=== PATIENT | female | born 1960 | race Caucasian/White ===

== ENCOUNTER → 2016-09-02 | Outpatient (CLI) | payer OTHER ==
--- NOTE | 2016-09-02 15:45 | US ---
Complete abdominal sonography Conical history: 55-year-old female with right upper quadrant pain, frequency of micturition, and gas eous abdominal distention. Evaluate the gallbladder. ICD 10 Diagnostic Codes: R10.11, R14.0, and R35.0. Technique: A curvilinear 5 MHz transducer was used to sonographically evaluate the upper abdomen. Col or Doppler was also used. Comparison Studies: Sonography and CT imaging of the abdomen, dated June 11, 2012. Findings: The pancreatic contour is normal. The abdominal aorta is normal in size, and tapers normall y. The visualized IVC is normal in caliber. The main portal vein is patent, and the hepatic vein trif urcation is normal. There is no ascites or pleural effusion. The liver is normal in size, measuring 1 3.4 cm along the right midaxillary line. There is no focal hepatic mass identified. There is no intra or extra hepatic bile duct dilatation. The common bile duct measures 2.4 mm. The gallbladder is mode rately distended, with no stones, sludge, wall thickening, pericholecystic fluid, or sonographic Murp hy sign. The wall thickness is 2.2 mm. The right kidney is slightly malrotated, and measures 11.6 x 4 .4 x 3.5 cm with a small extrarenal pelvis. The left kidney is normal in size, shape, and position, m easuring 10.9 x 4.7 x 3.9 cm. There is no hydronephrosis or perinephric fluid. The spleen is normal, measuring 10.1 x 9.2 x 3.9 cm. Impression: Findings are within normal limits. As requested, results were conveyed to Vania, the medical assistant dermatology for Dr. Dayna Betancourt. A test result has been communicated to a licensed care provider and documented in [facility], 3:39:41 PM , 09/02/2016, [facility] Message ID [id number].
== END ==
LOC: FIMAGING 12:08
PROVIDERS: ATTEND Internal Medicine
DX: R10.11 Right upper quadrant pain (principal); R14.0 Abdominal distension (gaseous)

== ENCOUNTER → 2016-09-14 | Outpatient (CLI) | payer OTHER ==
--- NOTE | 2016-09-14 10:21 | MR ---
Unenhanced MRI of the Thoracic Spine Clinical History: 55-year-old female with epigastric pain; rule out neurologic pathology as abdominal sonography was negative. ICD 10 Diagnostic Code: R10.13. Technique: Sagittal T1 localizers were obtained of the cervical, thoracic, and lumbar spine for the p urpose of counting vertebral bodies. Subsequently, FSE coronal and sagittal T2-weighted sequences, sa gittal T1 FLAIR, and T2 STIR sequences of the thoracic spine were obtained and supplemented by axial T1 and FSE T2-weighted sequences Comparison Study: MR imaging of the thoracic spine, dated April 27, 2012. Findings: The thoracic vertebral body heights, posterior alignments, and bone marrow signal are withi n normal limits. The disk spaces are maintained. The spinal cord caliber and signal are normal with n o cord edema, myelomalacia, or syrinx. There is no focal disk herniation, canal stenosis, or neural f oraminal impingement. There is no prevertebral or epidural hematoma. The conus medullaris has a alice l morphology, terminating at the caudal aspect of L1. The visualized prevertebral soft tissues are wi thin normal limits. The dorsal interspinous distances are appropriate, and there is no abnormality wi th respect to the interspinous ligament or the anterior and posterior longitudinal ligaments. There i s a 3.7 mm cyst in the posteromedial right hepatic lobe, and there is a left extrarenal pelvis incide ntally observed. Impression: Findings are within normal limits, and relatively unchanged from April 27, 2012.
== END ==
LOC: FIMAGING 08:01
PROVIDERS: ATTEND Family Medicine
DX: R10.13 Epigastric pain (principal)

== ENCOUNTER 2016-09-15 19:23 | Emergency (ER) | payer BC, OTHER ==
[2016-09-15 19:42] VITALS: BP 108/56; PULSE 78; RESP 20; TEMP 97.3; O2SAT 98
--- NOTE | 2016-09-15 19:47 | EDPHY ---
[id number] 4d CHIEF COMPLAINT: Abdominal pain HISTORY OF PRESENT ILLNESS: This patient is a 55 year old female who presents to the Emergency Department complaining of intermittent abdominal pain beginning on August 11 and increasing in frequency over time. Her pain is exacerbated when she attempts to eat so she reports associated weight loss over this time. Today, her pain presented spontaneously at 1600; her last meal was at breakfast. She describes her pain as stabbing and burning and localized to her upper abdomen with radiation to her back and upper left shoulder. Her pain radiated up to her head and down both arms with paresthesias. The back, shoulder , and arm discomfort was short-lived and has resolved. She denies fever, urinary complaints, diarrhea, or vomiting. She does tell me that she experienced similar episodes of abdominal pain over the past five years that resolved on their own. She had an abdominal ultrasound done recently which showed an enlarged gall bladder but no cholelithiasis. She had a thoracic MRI done yesterday to rule out neurological etiology for her symptoms and is scheduled to have an abdominal CT with oral contrast tomorrow. Medical history includes Lyme disease with a pericardial effusion that is followed by US (last ultrasound almost a year ago). Family history includes pancreatic cancer in uncle and mother. REVIEW OF SYSTEMS: A ten point review of systems was performed and is negative with the exception of the items mentioned in the HPI. Source: Patient - Personal History Current Tetanus Diphtheria and Acellular Pertussis (TDAP): Yes Tetanus Vaccine Date: 1 year ago - Medical/Surgical History Hx Asthma: No Hx Chronic Respiratory Disease: No Hx Diabetes: No Hx Cardiac Disease: Yes Hx Renal Disease: No Hx Cirrhosis: No Hx Alcoholism: No Hx HIV/AIDS: No Hx Splenectomy or Spleen Trauma: No Other PMH: hypothyroid. Lyme disease. pericardial effusion - Social History Smoking Status: Never smoked Additional Social History: She is . Occasional alcohol use. She works in [employer]. - Physical Exam Exam: General Appearance: Alert. Vital signs reviewed. Eyes: Pupils equal and round, no conjunctival injection, no discharge. Anicteric. ENT, Mouth: Mucous membranes are moist, no oropharyngeal erythema or edema. Neck: No lymphadenopathy, supple. Respiratory: Lungs are clear to auscultation; no wheezes, rales, or rhonchi. Cardiovascular: Regular rate and rhythm; no murmur, rub, or gallop. Gastrointestinal: Abdomen is soft and mildly tender in midepigastrium, no masses or organomegaly, bowel sounds normal. No guarding. Skin: Warm and dry, no rashes on exposed skin, normal color. Specifically, no vesicular lesions. Back: Nontender to palpation over the thoracolumbar spine. No CVAT. Extremities: No lower extremity edema, no calf tenderness or swelling. Neurological: Alert and oriented. Moving all four extremities easily and equally. Psychiatric: Normal affect. Constitutional: Initial Vital Signs Temperature (C) 36.3 C 09/15/16 19:38 Heart Rate 78 09/15/16 19:38 Respiratory Rate 20 09/15/16 19:38 Blood Pressure 108/56 L 09/15/16 19:38 O2 Sat (%) 98 09/15/16 19:38 O2 Delivery Mode Room Air Allergies/Adverse Reactions: shellfish derived Allergy (Verified 09/15/16 19:38) SCOPOLOMINE Allergy (Uncoded 09/15/16 19:37) Home Medications: Medication Instructions Recorded Levothyroxine [Synthroid 75 mcg 75 mcg PO DAILY06 04/21/12 (*)] Calcium Carbonate [Oyster Shell 500 mg PO DAILY 06/11/12 Calcium 500 mg (*)] Cholecalciferol Vit D3 [Vitamin D3 1,000 units PO DAILY 06/11/12 (*)] Herbals/Supplements -Info Only 1 each PO DAILY 06/11/12 Multivitamins [Multivitamin (*)] 1 each PO DAILY 06/11/12 Planner/Scheduler Completed 06/11/12 06/11/12 Reconciled 06/11/12 06/11/12 Acetaminophen [Tylenol 325mg (*)] 650 mg PO Q4 PRN #0 tab 06/12/12 Hydrocodone/APAP 5/325 [[place] 1 tab PO Q4 PRN #30 tab 06/12/12 5/325 (*)] Loperamide HCl [Imodium 2 mg (*)] 2 mg PO Q2 PRN #30 cap 06/12/12 Cefdinir 07/24/16 Medical Decision Making ED Course/Re-evaluation: I reviewed the patient's prior medical records including recent MRI and labs.We discussed proceeding with abdominal CT she had planned for tomorrow; however, the study is ordered with PO and IV contrast. I spoke with the radiologist who recommends PO contrast tonight and again tomorrow before the CT (this is how she has been instructed to take the contrast). Zonia does not have a surgical abdomen tonight and I do not suspect an acute change that would require intervention. Therefore I recommend proceeding with the OP CT as planned. I feel that the best results and the best hope for diagnosis will be obtained that way. I discussed with her return to the ED precautions which she understands. Her acute symptoms have resolved. Her exam is not worrisome. VS WNL. She will be discharged home in good condition. I do not suspect aortic dissection, ureterolithiasis, ascending cholangitis, bowel obstruction or perforation, intra-abdominal infection such as appendicitis. Departure - Departure Disposition: Home, Routine, Self-Care Clinical Impression: Abdominal pain Condition: Good Instructions: Abdominal Pain (ED) Additional Instructions: 1. Proceed with your CT prep as planned. 2. Return to the Emergency Department with fever, worsening pain, or other serious concerns. Referrals: Lei Navas MD [Primary Care Provider] - As per Instructions Report Scribed for: Cami Brannon Report Scribed by: Virginia Palacio Date of Report: 09/15/16 Time of Report: 19:50 Physician Review and Approval Statement: 09/15/16 19:46 Portions of this note were transcribed by the medical concierge. I, Dr. Cami Brannon, personally performed the history, physical exam, and medical decision- making; and confirmed the accuracy of the information in the transcribed note.
== END 2016-09-15 21:00 | disposition home or self-care (01) ==
DX: R10.13 Epigastric pain (principal)

== ENCOUNTER → 2016-09-16 | Outpatient (CLI) | payer BC, OTHER ==
[~2016-09-16] MED LIST: IOPAMIDOL (ISOVUE-300) 50 ML VIAL IV ONE
--- NOTE | 2016-09-16 18:18 | CT ---
CT Scan of the Abdomen and Pelvis (With Contrast) Clinical Indications: 55-year-old female with postprandial epigastric pain with solids for one month. There is a family history of pancreatic masses. There is no personal prior abdominal surgical histor y. ICD-10 DIAGNOSTIC CODE: R10.13. Technique: Dilute contrast was given orally prior to scanning. 85 mL ofIsovue-300 were given intrave nously by machine power injection. A multidetector helical CT imaging was performed from the diaphra gm to the symphysis pubis. Dose reduction techniques were utilized. Images are reformatted at 5.00 an d 1.25 mm increments, and are reviewed at a variety window and level settings. Parasagittal and parac oronal reconstructed images are reviewed on the workstation. The DFOV is 36 cm. COMPARISON STUDY: Contrast-enhanced CT scan of the abdomen, dated 06/11/2012. Findings: Contrast-Enhanced CT Scan of the Abdomen: There is a persistent inferior pericardial recess effusion with a Hounsfield unit measurement of 23. The lung bases are clear, and there is no significant pleu ral fluid. The liver is normal in size and attenuation with a tiny cyst once again seen in the media l right hepatic lobe on series 3, images 68-72. The biliary ducts and gallbladder are unremarkable. The stomach and the first, second, and proximal third portions of the duodenum are fluid-distended, a nd there appears to be some narrowing of the aortomesenteric distance to 5 mm (normal should be at le ast 10 mm), and the aortomesenteric angle has also narrowed to 19 degrees (normally this should be gr eater than or equal to 25 degrees). This raises the possibility of a superior mesenteric artery syndr ome. Upper GI fluoroscopy may be of benefit in further evaluating the persistence of extrinsic compre ssion on the third portion of the duodenum. The pancreas and spleen are normal. The adrenal glands a nd kidneys are normal in size. 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 There is no calyceal dilat ation or perinephric inflammation. There is no retroperitoneal or mesenteric adenopathy. There is no ascites. The abdominal aorta is normal in size with some mild atherosclerotic calcification. The IVC is normal in caliber. The osseous structures are age-appropriate. Moderate constipation is seen. Contrast-Enhanced CT Scan of the Pelvis: The urinary bladder is moderately distended. The uterus is m idline. There is no adnexal mass, or free fluid or adenopathy. The osseous structures are age-appropr iate. Bowel loops are normal. Impression: 1. There is a small inferior pericardial recess effusion, similar to 2012. This is incompletely image d, and if there is further clinical concern echocardiography, may be of benefit. 2. Gastric and duodenal distention with a potential "superior mesenteric artery compression disorder. " Consider upper GI fluoroscopy to further evaluate for persistent extrinsic compression on the third portion of the duodenum (given the patient's postprandial symptoms). A nuclear medicine gastric empt valery study may also be of benefit, as clinically directed.
== END ==
LOC: FIMAGING 15:00
PROVIDERS: ATTEND Family Medicine
DX: N32.89 Other specified disorders of bladder (principal); I31.3 Pericardial effusion (noninflammatory)
CPT/HCPCS: Q9967

== ENCOUNTER 2016-09-18 04:02 | Observation (INO) | payer BC ==
--- NOTE | 2016-09-18 04:26 | EDPHY ---
H & P Stated Complaint: pt says she's had mid abd burning and overnight began feeling sob HPI/ROS: HPI CHIEF COMPLAINT: Abdominal pain, nausea, vomiting, weight loss HISTORY OF PRESENT ILLNESS: This patient is a very pleasant 55-year-old female she has significant past medical history for Lyme disease, hypothyroidism, presents emergency room with a 10 lb weight loss over the past month. She tells me that she has been having epigastric abdominal pain with nausea and has not been able to tolerate whole food in the past month. She has had no evaluation with an ultrasound that showed a normal gallbladder she seen her primary care doctor she was referred for CT scan that she had 2 days ago for ongoing epigastric abdominal pain she describes severe pain burning in nature worse after she eats food. She has been puree in her food with now at 10 pain weight loss. Of note I did review her CT scan she had 2 days ago that shows gastric outlet obstruction with extrinsic compression of the SMA causing duodenal compression. This most likely cause of her pain. Past Medical History: Lyme disease, thyroid disease Past Surgical History: No significant surgical history Social History: Denies drug use, alcohol, tobacco products Family History: Noncontributory ROS REVIEW OF SYSTEMS: A comprehensive 10 point review of systems is otherwise negative aside from elements mentioned in the history of present illness. Exam Constitutional triage nursing summary reviewed, vital signs reviewed, awake/ alert. Eyes normal conjunctivae and sclera, EOMI, PERRLA. HENT normal inspection, atraumatic, moist mucus membranes, no epistaxis, neck supple/ no meningismus, no raccoon eyes. Respiratory clear to auscultation bilaterally, normal breath sounds, no respiratory distress, no wheezing. Cardiovascular rate normal, regular rhythm, no murmur, no edema, distal pulses normal. Gastrointestinal soft, mild tenderness in the epigastric region , no rebound, no guarding, normal bowel sounds, no distension, no pulsatile mass. Genitourinary no CVA tenderness. Musculoskeletal no midline vertebral tenderness, full range of motion, no calf swelling, no tenderness of extremities, no meningismus, good pulses, neurovascularly intact. Skin pink, warm, & dry, no rash, skin atraumatic. Neurologic awake, alert and oriented x 3, AAOx3, moves all 4 extremities equally, motor intact, sensory intact, CN II-XII intact, normal cerebellar, normal vision, normal speech. Psychiatric normal mood/affect. Heme/Lymph/Immune no lymphadenopathy. Differential diagnosis includes but is not limited to and in no particular order : Bowel obstruction, appendicitis, gallbladder disease, diverticulitis, colitis , enteritis, perforated viscus, gastritis, GERD, esophagitis, urinary tract infection, pyelonephritis, kidney stones Medical Decision Making: plan is for IV establishment IV fluids nausea medicine pain medicine will obtain abdominal blood work I did review her CT scan results with her. I did recommend admission to the patient due to 10-15 lb weight loss ongoing epigastric abdominal pain and the results of her CT scan she would benefit from EGD and GI to see. She is agreeable with this plan. Re-evaluation: EKG interpretation by me on record in [facility] system. Impression time of EKG is 4:32 a.m., this is sinus rhythm rate of 80, no acute ischemic changes specifically no ST elevation, ST depression T-wave abnormality. 0610: re-evaluation patient is resting comfortably here in the emergency room acute distress. I did review her CT scan with her. blood work is reassuring, negative troponin, nonischemic EKG. Patient be admitted to the hospitalist service I spoke with Dr. Rosa for admission for Gastric Outlet Obstruction. Recommend GI sees this patient most likely do an EGD. Or emptying study. 0621: Spoke with Dr. Rosa agrees to admit this patient. 0633; re-evaluation patient agrees for admission. She is resting comfortably this time no acute distress. ED x-ray chest one view: upright: Negative for acute cardiopulmonary disease. Image interpreted by myself. No free air underneath the diaphragms. Source: Patient - Personal History Tetanus Vaccine Date: 1 year ago - Medical/Surgical History Hx Asthma: No Hx Chronic Respiratory Disease: No Hx Diabetes: No Hx Cardiac Disease: Yes Hx Renal Disease: No Hx Cirrhosis: No Hx Alcoholism: No Hx HIV/AIDS: No Hx Splenectomy or Spleen Trauma: No Other PMH: hypothyroid. Lyme disease. pericardial effusion - Social History Smoking Status: Never smoked Constitutional: Initial Vital Signs Temperature (C) 36.3 C 09/18/16 04:06 Heart Rate 87 09/18/16 04:06 Respiratory Rate 18 09/18/16 04:06 Blood Pressure 124/85 H 09/18/16 04:06 O2 Sat (%) 99 09/18/16 04:06 O2 Delivery Mode Room Air Allergies/Adverse Reactions: shellfish derived Allergy (Verified 09/18/16 04:09) SCOPOLOMINE Allergy (Uncoded 09/15/16 19:37) Home Medications: Medication Instructions Recorded Herbals/Supplements -Info Only 1 each PO DAILY 06/11/12 Compounded Sl Testosterone 1 each PO MOTUWETHFRSA 09/18/16 Levothyroxine [Synthroid 75 mcg 75 mcg PO DAILY06 #30 tab 09/19/16 (*)] Sucralfate [Carafate Oral Liquid] 10 ml PO ACHS #500 ml 09/19/16 Medical Decision Making - Data Points Laboratory Results: Laboratory Results 09/18/16 04:25 09/18/16 04:25 Medications Given: Discontinued Medications Acetaminophen (Tylenol) 650 mg PO Q4HRS PRN PRN Reason: Pain, Mild/Fever, Can Take PO Stop: 03/17/17 07:14 Last Admin: 09/18/16 20:48 Dose: 650 mg Famotidine (Pepcid) 20 mg PO BID ON LICENSE OF [facility] Stop: 03/18/17 11:59 Last Admin: 09/19/16 12:29 Dose: Not Given Sodium Chloride (Ns) 1,000 mls @ 0 mls/hr IV ONCE ONE PRN Reason: Wide Open Stop: 09/18/16 04:30 Last Admin: 09/18/16 04:38 Dose: 1,000 mls Sodium Chloride (Ns) 1,000 mls @ 100 mls/hr IV CONT JUMA Stop: 03/17/17 07:14 Last Admin: 09/19/16 04:10 Dose: 1,000 mls Morphine Sulfate (Morphine) 6 mg IVP EDNOW ONE Stop: 09/18/16 04:30 Last Admin: 09/18/16 08:36 Dose: Not Given Ondansetron HCl (Zofran) 4 mg IVP EDNOW ONE Stop: 09/18/16 04:30 Last Admin: 09/18/16 08:31 Dose: 2 mg Sucralfate (Carafate Suspension) 1 gm PO ACHS ON LICENSE OF [facility] Stop: 03/18/17 12:29 Last Admin: 09/19/16 12:20 Dose: 1 gm Departure - Departure Disposition: [facility] Acute Clinical Impression: Abdominal pain Qualifiers: Abdominal location: epigastric Qualifier Code: (R10.13) Epigastric pain Condition: Good
[2016-09-18] MEDS ORDERED: ONDANSETRON 4 MG/2 ML VIAL IVP ONE (04:29)
[2016-09-18] MEDS ORDERED: NS 1,000 ML IV ONE (04:29)
[2016-09-18 04:34] LABS: % IMMATURE GRANULYOCYTES 0.2 % (0.0-1.1); ABSOLUTE IMMATURE GRANULOCYTES 0.01 10^3/uL (0.00-0.10); ADD DIFF? NO; ADD MORPH? NO; ADD SCAN? NO; ATYPICAL LYMPHOCYTE FLAG 10 (0-99); FRAGMENT RBC FLAG 0 (0-99); HEMATOCRIT 41.7 % (38.0-47.0); HEMOGLOBIN 14.6 g/dL (12.6-16.3); LEFT SHIFT FLG 10 (0-99); LIPEMIA HEMOLYSIS FLAG 90 (0-99); MEAN CELL HEMOGLOBIN 29.3 pg (27.9-34.1); MEAN CELL VOLUME 83.7 fL (81.5-99.8); MEAN PLATELET VOLUME 12.5 fL (8.7-11.7); PLATELET CLUMPS FLAG 0 (0-99); PLATELET COUNT 153 10^3/uL (150-400); RED BLOOD CELL COUNT 4.98 10^6/uL (4.18-5.33); RED CELL DISTRIBUTION WIDTH 12.2 % (11.5-15.2)
[2016-09-18 04:43] LABS: APTT 29.2 SEC (23.0-38.0); INR 1.12 (0.83-1.16); PROTIME(PATIENT) 14.3 SEC (12.0-15.0)
--- NOTE | 2016-09-18 04:47 | CPEKG ---
Heart Rate: 80 RR Interval: 750 P-R Interval: 176 QRSD Interval: 76 QT Interval: 372 QTC Interval: 430 P [place]: 64 QRS [place]: 81 T Wave [place]: 67 EKG Severity - BORDERLINE ECG - EKG Impression: SINUS RHYTHM EKG Impression: LOW VOLTAGE WITH RIGHT AXIS DEVIATION Electronically Signed By: Rick Leung 18-Sep-2016 06:53:10
[2016-09-18 04:48] LABS: ALANINE AMINOTRANSFERASE 45 IU/L (9-52); ALBUMIN 4.3 g/dL (3.5-5.0); ALKALINE PHOSPHATASE 95 IU/L (38-126); ANION GAP 11 mEq/L (8-16); ASPARTATE AMINOTRANSFERASE 32 IU/L (14-46); BILIRUBIN,TOTAL 0.8 mg/dL (0.1-1.4); BILIRUBIN-CONJUGATED 0.1 mg/dL (0.0-0.5); BILIRUBIN-UNCONJUGATED 0.7 mg/dL (0.0-1.1); CALCIUM 9.8 mg/dL (8.5-10.4); CARBON DIOXIDE 25 mEq/l (22-31); CHLORIDE 99 mEq/L (97-110); CREATININE 0.7 mg/dL (0.6-1.0); GLOMERULAR FILTRATION RATE > 60; GLUCOSE 87 mg/dL (70-100); POTASSIUM 3.7 mEq/L (3.5-5.2); SODIUM 135 mEq/L (134-144); TOTAL PROTEIN 7.3 g/dL (6.3-8.2)
[2016-09-18 04:58] LABS: TROPONIN I < 0.012 ng/mL (0-0.034)
[2016-09-18 05:42] LABS: COLOR PALE YELLOW; LEUKOCYTE ESTERASE,URINE NEGATIVE (NEGATIVE); NITRITE,URINE NEGATIVE (NEGATIVE)
[2016-09-18] MEDS ORDERED: HYDROmorphONE/DILAUDID 1 MG/ML SYR IVP PRN (07:15)
[2016-09-18] MEDS ORDERED: ACETAMINOPHEN 325 MG TAB PO PRN (07:15)
[2016-09-18] MEDS ORDERED: ONDANSETRON DISINTEGRATING 4 MG TAB PO PRN (07:15)
[2016-09-18] MEDS ORDERED: HYDROCODONE/APAP 5/325 TAB PO PRN (07:15)
[2016-09-18] MEDS ORDERED: ONDANSETRON 4 MG/2 ML VIAL IVP PRN (07:15)
--- NOTE | 2016-09-18 08:18 | DX ---
Portable Chest September 18, 2016 0627 hours History: Epigastric pain. Comparison: Rib series June 24, 2012. CT chest June 11, 2012. Findings: Minimal peribronchial thickening is present without focal consolidation. There is no pneumo thorax or pleural effusion. Heart size is normal. The bones are normal. Impression: Minimal peribronchial thickening suggesting airways disease.
--- NOTE | 2016-09-18 08:39 | PDGENHP ---
History and Physical - Chief Complaint abdominal pain - History of Present Illness Patient is 55/F with hypothyroidism, h/o lyme disease who presents to ED with complaint of severe post-prandial epigastric pain. She has been having symptoms for 1 month. She reports intense burning epigastric pain after eating, which has been progressively getting worse. She has been unable to eat solid food at this time due to her symptoms and she reports a 10-lb weight loss. She denies overt nausea/vomiting, diarrhea. She was evaluated by her PMD for these symptoms , and given a significant family history of pancreatic cancer (M at 49 , maternal uncle also ), PMD was concerned about a pancreatic etiology. CT abd/pelvis was ordered and completed on 09/16 and revealed gastric and duodenal distention, concerning for possible superior mesenteric artery compression disorder. Given the severity of her symptoms and this finding, she was sent to the ED for further evaluation. In the Ed, pt is afebrile and hemodynamically stable. Labs were largely unremarkable, but UA showed ketones. SHe was given IVF hydration and admitted for inpatient w/u of the CT findings. History Information - Allergies/Home Medication List Allergies/Adverse Reactions: shellfish derived Allergy (Verified 09/18/16 04:09) SCOPOLOMINE Allergy (Uncoded 09/15/16 19:37) Home Medications: Levothyroxine [Synthroid 75 mcg (*)] 75 mcg PO DAILY06 04/21/12 [Last Taken 07/12 07:00] Calcium Carbonate [Oyster Shell Calcium 500 mg (*)] 500 mg PO DAILY 06/11/12 [ Last Taken 06/09/12] Cholecalciferol Vit D3 [Vitamin D3 (*)] 1,000 units PO DAILY 06/11/12 [Last Taken 06/09/12] Herbals/Supplements -Info Only 1 each PO DAILY 06/11/12 [Last Taken 06/10/12] Multivitamins [Multivitamin (*)] 1 each PO DAILY 06/11/12 [Last Taken 06/09/12] Sheet Heater Completed 06/11/12 06/11/12 [Last Taken Unknown] Reconciled 06/11/12 06/11/12 [Last Taken Unknown] Cefdinir 07/24/16 [Last Taken Unknown] I have personally reviewed and updated: family history, medical history, social history, surgical history - Past Medical History Additional medical history: hypothyroidism. osteopenia. h/o lyme disease - Surgical History Additional surgical history: L hip fracture - Family History Additional family history: M and maternal uncle: pancreatic cancer, mother in 40s. - Social History Smoking Status: Never smoked Alcohol Use: None Drug Use: None Additional social history: Patient lives with , is independet. Works in [employer]. Review of Systems ROS: 10pt was reviewed & negative except for what was stated in HPI & below Physical Exam Temp Pulse Resp BP Pulse Ox 36.9 C 74 18 100/71 97 09/18/16 07:44 09/18/16 07:16 09/18/16 07:44 09/18/16 07:16 09/18/16 07:44 Constitutional: no apparent distress, not in pain, cachectic Eyes: PERRL, anicteric sclera, EOMI Ears, Nose, Mouth, Throat: moist mucous membranes, hearing normal, ears appear normal, no oral mucosal ulcers Cardiovascular: regular rate and rhythym, no murmur, rub, or gallop, pulses symmetric bilaterally, No JVD, No edema Peripheral Pulses: 2+: dorsalis-pedis (R), dorsalis-pedis (L) Respiratory: no respiratory distress, no rales or rhonchi, clear to auscultation Gastrointestinal: normoactive bowel sounds, no palpable masses, tenderness (in epigastrum), No guarding, No rebound Genitourinary: no bladder fullness, no bladder tenderness Skin: warm, normal color, no rashes or abrasions, no fluctuance, No mottled Musculoskeletal: full muscle strength, no muscle tenderness, normal joint ROM, no joint effusions Neurologic: AAOx3, sensation intact bilaterally, CN II-XII Intact, No weakness, No numbness Psychiatric: interacting appropriately, not anxious, not encephalopathic, thought process linear Lab Data & Imaging Review 09/18/16 04:25 09/18/16 04:25 WBC 4.47 10^3/uL (3.80-9.50) 09/18/16 04:25 RBC 4.98 10^6/uL (4.18-5.33) 09/18/16 04:25 Hgb 14.6 g/dL (12.6-16.3) 09/18/16 04:25 Hct 41.7 % (38.0-47.0) 09/18/16 04:25 MCV 83.7 fL (81.5-99.8) 09/18/16 04:25 MCH 29.3 pg (27.9-34.1) 09/18/16 04:25 MCHC 35.0 g/dL (32.4-36.7) 09/18/16 04:25 RDW 12.2 % (11.5-15.2) 09/18/16 04:25 Plt Count 153 10^3/uL (150-400) 09/18/16 04:25 MPV 12.5 fL (8.7-11.7) H 09/18/16 04:25 Neut % (Auto) 40.5 % (39.3-74.2) 09/18/16 04:25 Lymph % (Auto) 43.2 % (15.0-45.0) 09/18/16 04:25 [place] % (Auto) 14.1 % (4.5-13.0) H 09/18/16 04:25 Eos % (Auto) 1.8 % (0.6-7.6) 09/18/16 04:25 Baso % (Auto) 0.2 % (0.3-1.7) L 09/18/16 04:25 Nucleat RBC Rel Count 0.0 % (0.0-0.2) 09/18/16 04:25 Absolute Neuts (auto) 1.81 10^3/uL (1.70-6.50) 09/18/16 04:25 Absolute Lymphs (auto) 1.93 10^3/uL (1.00-3.00) 09/18/16 04:25 Absolute Monos (auto) 0.63 10^3/uL (0.30-0.80) 09/18/16 04:25 Absolute Eos (auto) 0.08 10^3/uL (0.03-0.40) 09/18/16 04:25 Absolute Basos (auto) 0.01 10^3/uL (0.02-0.10) L 09/18/16 04:25 Absolute Nucleated RBC 0.00 10^3/uL (0-0.01) 09/18/16 04:25 Immature Gran % 0.2 % (0.0-1.1) 09/18/16 04:25 Immature Gran # 0.01 10^3/uL (0.00-0.10) 09/18/16 04:25 PT 14.3 SEC (12.0-15.0) 09/18/16 04:25 INR 1.12 (0.83-1.16) 09/18/16 04:25 APTT 29.2 SEC (23.0-38.0) 09/18/16 04:25 VBG Lactic Acid 1.0 mmol/L (0.7-2.1) 09/18/16 04:40 Sodium 135 mEq/L (134-144) 09/18/16 04:25 Potassium 3.7 mEq/L (3.5-5.2) 09/18/16 04:25 Chloride 99 mEq/L (97-110) 09/18/16 04:25 Carbon Dioxide 25 mEq/l (22-31) 09/18/16 04:25 Anion Gap 11 mEq/L (8-16) 09/18/16 04:25 BUN 6 mg/dL (7-23) L 09/18/16 04:25 Creatinine 0.7 mg/dL (0.6-1.0) 09/18/16 04:25 Estimated GFR > 60 09/18/16 04:25 Glucose 87 mg/dL (70-100) 09/18/16 04:25 Calcium 9.8 mg/dL (8.5-10.4) 09/18/16 04:25 Total Bilirubin 0.8 mg/dL (0.1-1.4) 09/18/16 04:25 Conjugated Bilirubin 0.1 mg/dL (0.0-0.5) 09/18/16 04:25 Unconjugated Bilirubin 0.7 mg/dL (0.0-1.1) 09/18/16 04:25 AST 32 IU/L (14-46) 09/18/16 04:25 ALT 45 IU/L (9-52) 09/18/16 04:25 Alkaline Phosphatase 95 IU/L (38-126) 09/18/16 04:25 Troponin I < 0.012 ng/mL (0-0.034) 09/18/16 04:25 Total Protein 7.3 g/dL (6.3-8.2) 09/18/16 04:25 Albumin 4.3 g/dL (3.5-5.0) 09/18/16 04:25 Lipase 228.0 IU/L (23-300) 09/18/16 04:25 Urine Color PALE YELLOW 09/18/16 05:30 Urine Appearance CLEAR 09/18/16 05:30 Urine pH 8.0 (5.0-7.5) H 09/18/16 05:30 Ur Specific [place] 1.001 (1.002-1.030) L 09/18/16 05:30 Urine Protein NEGATIVE (NEGATIVE) 09/18/16 05:30 Urine Ketones TRACE (NEGATIVE) H 09/18/16 05:30 Urine Blood NEGATIVE (NEGATIVE) 09/18/16 05:30 Urine Nitrate NEGATIVE (NEGATIVE) 09/18/16 05:30 Urine Bilirubin NEGATIVE (NEGATIVE) 09/18/16 05:30 Urine Urobilinogen NEGATIVE EU (0.2-1.0) 09/18/16 05:30 Ur Leukocyte Esterase NEGATIVE (NEGATIVE) 09/18/16 05:30 Ur Culture Indicated? NOT INDICATED (NI) 09/18/16 05:30 Urine Glucose NEGATIVE (NEGATIVE) 09/18/16 05:30 Visualized and Interpreted Chest x-ray results: Yes Chest X-Ray results: no infiltrate, normal Visualized and Interpreted imaging results: Yes Interpretation: CT abd/pelvis: gastric/duodenal distention with ? superior mesenteric artery compression syndrome Assessment & Plan Assessment: Patient is 55/F with no significant pmh, but strong family history of pancreatic ca, who has severe post-prandial pain, CT abd/pelvis orderd by her PMD reveals possible SMA compression disorder/syndrome. 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 Electrolytes, lipase and LFTs are all wnl. Will admit for IVF hydration, check small bowel follow through and obtain GI and surgery consult. Will also obtain nutrition consult given recent associated unintentional weight loss. Consider NGT placement if patient develops nausea/ vomiting. # hypothyroidism Check TSh and cont home synthroid. # dispo: admit as observation status to complete above w/u # full code
[2016-09-18] MEDS: NS 1,000 ML IV SCH ×2 (08:51→18:07)
--- NOTE | 2016-09-18 14:11 | GCON ---
[f rep st] CONSULTATION I have been asked to see the patient in regard to abdominal pain. This 55-year-old female started having pain just over a month ago. It is usually postprandial, worse after fatty foods. It is epigastric, transpyloric and radiates into the shoulder blade commonly the right but occasionally the left. She has lost 10 pounds because of the abdominal pain and her fear of eating. A CT scan was done at [facility] which raised the concern of a superior m esenteric artery syndrome because of the low SMA aortic angle. Interestingly, the patient has not had any vomiting postprandially, just pain. A small bowel follow through done earlier today shows passage of contrast across the midline, and whi le there was some transient dilatation of the duodenum prior to this, there was clearly no persistent dilatation nor obstructive phenomenon going on and the radiologist felt in SMA obstruction was unlik rené. Also, the stomach was not dilated. PAST MEDICAL HISTORY: Patient had somewhat similar episode a number of years ago and was seen in [facility], where endoscopic ultrasound was done which was normal and the patie nt had a discussion with the GI doctor at that time about sphincter of Oddi dysfunction but did not h ave any further testing. Those pains subsided over time but now she has the current issue. PHYSICAL EXAMINATION: GENERAL: Pleasant, slender female. ABDOMEN: Soft, scaphoid, nontender. No masses. ASSESSMENT: Epigastric pain postprandial, worse after fatty foods, highly suggestive of biliary trac t disease despite negative ultrasound. I think it would be reasonable to get a HIDA scan with an eje ction fraction. Should this persist, a repeat ultrasound at some interval would be helpful and consi deration of cholecystectomy even with normal ultrasound, HIDA, etc., is often reasonable. The patien t likely should have an EGD prior to considering a cholecystectomy to rule out peptic disease. /[id number]/MODL
--- NOTE | 2016-09-18 14:36 | DX ---
Upper GI Series History: Right upper quadrant pain after eating, initially experienced in 2011, recently recurred ove r the past month. Minimal weight loss since onset of symptoms, with no significant weight loss preced ing the symptoms. Comparison: CT abdomen and pelvis September 16, 2016, upper GI May 13, 2012. Technique: Multiple spot images were obtained during real-time fluoroscopic observation of the upper GI tract using air-contrast with ingestion of thin and thick barium. Findings: Swallowing is grossly normal with symmetric appearance of the valleculae and piriform sinus es. The esophagus has normal caliber and contour with normal peristalsis. There is no hiatal hernia. There is mild diffuse nodularity of the gastric mucosa, which could be related to gastritis. Contras t empties rapidly from the stomach, although there is mild distention of the proximal duodenum to the level of the midline in the region of the SMA, with intermittent progression of contrast across midl ine. A tiny diverticulum is present at the medial aspect of the second portion of the duodenum. 3.2 minutes of fluoroscopy were utilized. Dose= 44.7 mGy. Impression: 1. Mild nonspecific distention of the proximal duodenum to the level of the SMA, without evidence of obstruction. SMA syndrome could have this appearance. 2. Mild diffuse nodularity of the gastric mucosa, suspicious for gastritis.
--- NOTE | 2016-09-18 17:01 | HOSPPROG ---
Hospitalist Progress Note Assessment/Plan: Chart reviewed. Pt new to my care. Discussed case with Surgery and GI. Pt admitted due to concern for SMA syndrome, which is not supported by UGI study. Surgery suspects biliary source of pain and HIDA scan is ordered. U/S done within past month did not show gallstones. GI consulted, pt NPO after midnight , may proceed with EGD to r/o peptic ulcer prior to consideration of cholecystectomy. Appreciate surgery and GI input. Objective: Vital Signs Temp Pulse Resp BP Pulse Ox 36.5 C 71 14 100/60 95 09/18/16 15:06 09/18/16 15:06 09/18/16 15:06 09/18/16 15:06 09/18/16 15:06 09/17/16 09/18/16 09/19/16 05:59 05:59 05:59 Intake Total 1000 Balance 1000 PT 14.3 SEC (12.0-15.0) 09/18/16 04:25 INR 1.12 (0.83-1.16) 09/18/16 04:25 ICD10 Worksheet Patient Problems: Problems Problem Status Diagnosed Abdominal pain Acute Pericardial effusion Active
[2016-09-18 23:48] VITALS: RESP 16
[2016-09-19] MEDS: NS 1,000 ML IV SCH (04:10)
[2016-09-19] MEDS ORDERED: LEVOTHYROXINE 88 MCG TAB PO SCH (06:00)
[2016-09-19] MEDS ORDERED: fentaNYL 100 MCG/2 ML INJ ONE (08:52)
[2016-09-19] MEDS ORDERED: MIDAZOLAM 2 MG/2 ML VIAL ONE (08:52)
[2016-09-19] MEDS ORDERED: LIOTHYRONINE SODIUM 5 MCG TAB PO SCH (09:00)
[2016-09-19] MEDS ORDERED: SINCALIDE 5 MCG VIAL IJ ONE (09:05)
--- NOTE | 2016-09-19 09:39 | GCON ---
[f rep st] CONSULTATION INPATIENT CONSULTATION REFERRING PHYSICIAN: Peggy Rosa MD REQUESTING PHYSICIANS: CHIEF COMPLAINT: Abdominal pain. REASON FOR CONSULTATION: Abdominal pain. HISTORY OF PRESENT ILLNESS: Briefly, the patient is a 55-year-old female with a history of hypothyroidism and possible Lyme disease, who presented to the emergency room on 09/18/2016 for the evaluation of severe postprandial upper intestinal abdominal pain. She reports she has been having these symptoms for approximately 1 month. She reports they are clearly worse after eating and have been gradually worsening over the last month. She describes being unable to eat food to the normal degree and reports a 10-15 pound weight loss. She reports no nausea or vomiting. She denies diarrhea. She is being evaluated through her primary care doctor for these symptoms. She recently had some testing that was concerning for superior mesenteric artery syndrome. Of note, in 2012, she underwent an extensive abdominal pain workup for a similar , although slightly different, symptom complex. This included upper endoscopy, laboratory testing, pH impedance testing, referral to the [facility] to rule out sphincter of Oddi dysfunction and to evaluate the pancreas carefully. She underwent endoscopic ultrasound. Summary of that evaluation was negative. She describes some weight loss at that time, and had stool testing to rule out pancreatic insufficiency. She had a normal fecal elastase and a normal fecal fat at that time. ALLERGIES: Shellfish and scopolamine. MEDICINES: At home: Levothyroxine, calcium, vitamin D, herbal supplements. PAST MEDICAL HISTORY: Includes hypothyroidism and a history of Lyme disease. PAST SURGICAL HISTORY: Includes hip fracture. FAMILY HISTORY: Significant for pancreas cancer in her mother, who had this diagnosis at an early age. SOCIAL HISTORY: She does not drink. She does not smoke. She does not use drugs. She works in [employer]. REVIEW OF SYSTEMS: A 14-point review of systems was undertaken with the patient and is negative except for those details described in the history of present illness. PHYSICAL EXAM: GENERAL: This is a well-developed female, in no apparent distress. HEENT: Her pupils are equal, round, reactive to light and accommodation. Sclerae are nonicteric. Oropharynx is clear. NECK: Supple without lymphadenopathy. HEART: Regular without murmur. ABDOMEN: Shows normoactive bowel sounds. There is mild tenderness in the mid epigastrium but there is no rebound or guarding. SKIN: Warm. Normal color. No rashes or abrasions. MUSCULOSKELETAL: Shows normal muscle strength. No joint swelling or effusions. NEUROLOGIC: Grossly normal. PSYCHIATRIC: Reveals normal mood and affect. LABORATORY DATA: Shows a white count of 4.4, hemoglobin of 14.6, platelet count of 153, hematocrit of 41.7. INR 1.12. Sodium of 135, potassium of 3.7, chloride of 99, bicarb 25, BUN of 6, creatinine of 0.7. Liver function tests normal. Lipase normal. IMAGING: Upper GI series on 09/18/2016 showed nonspecific distention of the proximal duodenum at the level of the SMA without evidence of obstruction, as well as some mild diffusely nodular gastric mucosa suspicious for gastritis. CT scan on 09/16/2016 shows small inferior pericardial effusion similar to 2012 , gastric and duodenal obstruction with possible superior mesenteric artery compression disorder. Right upper quadrant ultrasound on 09/02/2016 was normal. There was no bile duct dilation. The gallbladder was moderately distended but there was no stone, sludge or wall thickening. IMPRESSION/RECOMMENDATIONS: Abdominal pain. I suspect her abdominal pain symptoms are functional in nature. She has had intermittent recurring abdominal pain for a number of years. In 2012, she underwent a very extensive workup that was largely negative. She believes her current symptoms are slightly different. And, her imaging has changed slightly with the new findings that are suspicious for, but not diagnostic of, superior mesenteric artery syndrome. CT scan findings were concerning, but upper gastrointestinal series was only minimally suggestive. Previous CT scan in 2011, of note, did not show any concern for gastric outlet obstruction, superior mesenteric artery syndrome, etc. Prior upper gastrointestinal series with small-bowel follow- through in 2011 also did not show any suggestion of gastric outlet obstruction or superior mesenteric artery syndrome. At this time, I recommend she undergo a repeat upper endoscopy, to evaluate for the development of peptic disease, H pylori, etc. Her upper gastrointestinal findings did show possible mild gastritis. In addition, a HIDA scan may be useful to rule out biliary dyskinesia given the strong postprandial nature of her symptoms. Pending the results of her EGD and HIDA scan, could consider additional workup with gastric emptying evaluation, etc. 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 /[id number]/MODL MTDD
--- NOTE | 2016-09-19 11:02 | NM ---
Nuclear Medicine Hepatobiliary Scan with ejection fraction. Clinical Indications: Right upper quadrant pain. Comparison: Abdominal ultrasound September 02, 2016. Technique: The patient received 5.2 mCi technetium 99m Choletec intravenously and images of the abdo men were obtained immediately and then at 1 minute intervals through 30 minutes. Supplemental images were taken in multiple projections. At 30 minutes 1.0 mcg of CCK was administered and dynamic imagin g was performed over the gallbladder for 30 minutes. A time-activity curve was generated. Findings: Clearance of activity by the liver is normal. Activity promptly reaches the biliary ducts and duodenum. The gallbladder shows prompt uptake at 6 minutes, with no evidence of obstruction of the cystic duct. Activity is present in the small bowel. Following administration of CCK there is normal emptying of the gallbladder with the ejection fractio n calculated at 92 %. Impression: 1. Normal study with no evidence for cystic or common duct obstruction. 2. Gallbladder ejection fraction of 92%.
--- NOTE | 2016-09-19 11:04 | GPN ---
[f rep st] PROCEDURE NOTE PROCEDURES: Upper endoscopy. INDICATION: Abdominal pain, nausea, vomiting, poor p.o. tolerance. MEDICATIONS USED: 4 mg of Versed, 100 mcg of fentanyl. Conscious sedation was started and 10:15 a.m. and ended at 10:31 for a total conscious sedation time of 16 minutes. ACUTE COMPLICATIONS: None. DESCRIPTION OF PROCEDURE: After informed consent was obtained, the patient was placed in the left lateral decubitus position and the forward viewing upper endoscope was advanced through the mouth into the proximal duodenum. Retroflex views in the gastric cardia were obtained. FINDINGS: 1. Normal esophagus. 2. Mild antral gastritis, biopsied. 3. Normal duodenum, biopsied. 4. There was no evidence of any extrinsic compression on the duodenum throughout the entire duodenal sweep. Examination of the duodenum extended to the 4th portion and perhaps just beyond the ligament of Treitz. IMPRESSION AND RECOMMENDATIONS: Overall underwhelming upper endoscopy result. No clear explanation for postprandial epigastric abdominal pain and poor p.o. tolerance. Biopsies were obtained to rule out H pylori, celiac disease. No endoscopic evidence to suggest superior mesenteric artery syndrome. I recommended the patient resume a diet. We can start with clear liquids and advance from there. Currently awaiting the results of a HIDA scan. Gastric emptying evaluation could also be considered. 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 /[id number]/MODL MTDD
[2016-09-19] MEDS ORDERED: FAMOTIDINE 20 MG TAB PO SCH (12:00)
[2016-09-19] MEDS ORDERED: SUCRALFATE 1 GM/10 ML UDCUP PO SCH ×2 (12:30→17:30)
[2016-09-19 15:30] VITALS: BP 111/69; PULSE 81; TEMP 98.9; O2SAT 97
--- NOTE | 2016-09-19 15:52 | SOAPPROG ---
[facility] Progress Note Assessment/Plan: Assessment/Plan - 55yo female with nonspecific abdominal pain - Patients abdominal exam remains reassuring. She is still having some pain especially with PO, seems fixated that this biliary but with normal ultrasound and pristine HIDA there is low likelihood of missing cholecystitis or biliary colic. Reassured her that we may not have diagnosis but that major abdominal catastrophes have been evaluated and she doesnt have them. Will receive further testing as outpatient, agree with discharge home. 09/19/16 15:50 Subjective: Doing well, pain improved. Tolerating Jell-O Objective: Vital Signs Temp Pulse Resp BP Pulse Ox 37.2 C 81 16 111/69 97 09/19/16 15:29 09/19/16 15:29 09/19/16 15:29 09/19/16 15:29 09/19/16 15:29 09/18/16 09/19/16 09/20/16 05:59 05:59 05:59 Intake Total 3042 Balance 3042 PT 14.3 SEC (12.0-15.0) 09/18/16 04:25 INR 1.12 (0.83-1.16) 09/18/16 04:25 ICD10 Worksheet Patient Problems: Problems Problem Status Diagnosed Abdominal pain Acute Pericardial effusion Active
--- NOTE | 2016-09-19 20:51 | GDS ---
[f rep st] DISCHARGE SUMMARY DISCHARGE DIAGNOSES: 1. Epigastric pain. 2. Hypothyroidism with exogenous hyperthyroidism. CONSULTANTS: 1. General Surgery, Dr. Mik Serra. 2. Gastroenterology, Dr. Glenroy Riddle. IMAGING STUDIES/PROCEDURES: Chest x-ray September 18, 2016. HISTORY: For details please see dictated history and physical by Dr. Peggy Rosa dated September 18, 2016. In brief, the patient is a 55-year-old female with a history of hyperthyroidism and a dis tant history of Lyme disease, as well as a family history of pancreatic cancer, who presents to the [facility] with postprandial epigastric pain. Initial workup was started by her primary care physician. CT abdomen pelvis was performed in the out patient setting which revealed gastric and duodenal distention which raised concern for possibility o f superior mesenteric artery syndrome. She was sent to the Emergency Department and ultimately admi tted to the hospital for further evaluation. HOSPITAL COURSE: The patient was admitted to the Medical-Surgical Unit. An upper GI study was perfo rmed, the findings of which revealed mild nonspecific distention of the proximal duodenum without javier dence of obstruction, as well as some mild diffuse nodularity of the gastric mucosa suspicious for botello rgical gastritis. Surgical consult was obtained due to the concern for superior mesenteric artery sy ndrome. Dr. Serra did not think that her imaging findings were consistent with this. He was mor e suspicious for a biliary source, given that her postprandial pain is worse after fatty foods. She did have a negative ultrasound approximately 1 month ago with no evidence of gallstones. She underwe nt a HIDA scan in the hospital which showed a completely normal ejection fraction of 93%. Gastroente rology workup was then pursued and the patient underwent upper endoscopy on September 19, [address] Fabio Riddle which revealed just mild antral gastritis. Biopsies were taken of the stomach and duodenu m. There was no evidence of any extrinsic compression of the duodenum throughout the entire duodenal sweep. There was no endoscopic evidence to suggest superior mesenteric artery syndrome. The patien t was then given a clear liquid diet and was able to advance her diet, as she has had no nausea or vo miting or diarrhea when she has been here. 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 Given the lack of evidence for a biliary source f or pain, cholecystectomy was not recommended at this time. However, could consider repeating ultraso und at some point in the future if a strong clinical suspicion persists. She was offered a trial of PPI and/or H2 toan therapy, both of which she refused due to concerns for untoward side effects fr om these medication in the past. She did, however, agree to trial of sucralfate and is discharged on this medication. She is instructed to follow up with her GI specialist at the [facility], as well a s close followup with her primary care physician. Also of note, her TSH was less than 0.015. She is on both levothyroxine and Cytomel thyroid replacement. Her free T4 was at the upper range of normal at 1.95, but she does have an elevated free T3 at 5.6. I recommend she hold her Cytomel and decreas e her dose of levothyroxine at discharge and advised to have close followup with her prescribing phys nirmalan (he manages her thyroid disorder) for ongoing medication adjustments. I considered the possibi lity of exogenous hyperthyroidism contributing to some of her symptoms, though it is unclear if this is related. I also reviewed with the patient that she did have a normal lipase and the imaging of he r pancreas was completely normal. I provided her reassurance that there was no evidence of the time that she has pancreatic cancer. DISPOSITION: Patient is discharged home in stable condition. DISCHARGE MEDICATIONS: 1. Sucralfate 1 g p.o. q.a.c. and q.h.s. 2. Levothyroxine 75 mcg p.o. daily, decreased from 88 mg p.o. daily. DISCONTINUED MEDICATIONS: I recommend she hold her Cytomel for now until followup. FOLLOWUP: 1. Dr. Lei Navas, primary care physician. 2. Gastroenterology at the [facility], appointment for which is already scheduled for October 02, and the patient plans to keep this. /[id number]/MODL
== END 2016-09-19 17:46 | disposition home or self-care (01) ==
LOC: INTOOBSV 06:31 → F3E 08:43
PROVIDERS: ADMIT Internal Medicine; ATTEND Internal Medicine
PROC: 0DB68ZX Excision of Stomach, Via Natural or Artificial Opening Endoscopic, Diagnostic (ICD-10-PCS; principal; 2016-09-18)
PROC: 0DB98ZX Excision of Duodenum, Via Natural or Artificial Opening Endoscopic, Diagnostic (ICD-10-PCS; principal; 2016-09-18)
DX: R10.13 Epigastric pain (principal); E03.9 Hypothyroidism, unspecified
CPT/HCPCS: 71010; 74240; 78227; 93005; 96360; 99285; A9537; G0378; 84481-90; J2250; J2405; J3010

== ENCOUNTER → 2016-11-18 | Outpatient (CLI) | payer BC | LOC: FIMAGING 08:58 | DX: Z12.31 Encounter for screening mammogram for malignant neoplasm of breast (principal) | CPT/HCPCS: G0202 ==

== ENCOUNTER → 2017-11-30 | Outpatient (CLI) | payer BC | LOC: FIMAGING 12:18 | PROVIDERS: ATTEND Family Medicine | DX: Z12.31 Encounter for screening mammogram for malignant neoplasm of breast (principal); Z80.3 Family history of malignant neoplasm of breast ==

== ENCOUNTER → 2018-10-15 | Outpatient (CLI) | payer BC | LOC: FIMAGING 13:42 | PROVIDERS: ATTEND Registered Nurse | DX: Z13.820 Encounter for screening for osteoporosis (principal); M81.0 Age-related osteoporosis without current pathological fracture; M51.16 Intervertebral disc disorders with radiculopathy, lumbar region; S32.10XA Unspecified fracture of sacrum, initial encounter for closed fracture; Z87.39 Personal history of other diseases of the musculoskeletal system and connective tissue ==

== ENCOUNTER → 2018-12-07 | Outpatient (CLI) | payer BC | LOC: FIMAGING 11:41 | PROVIDERS: ATTEND Family Medicine | DX: Z12.31 Encounter for screening mammogram for malignant neoplasm of breast (principal); Z80.3 Family history of malignant neoplasm of breast ==